=== PATIENT | male | born 1970 | race Caucasian/White ===

== ENCOUNTER 2020-09-26 09:09 | Day surgery (SDC) | payer BC, OTHER ==
[~2020-09-26] VITALS: Ht 172.7 cm; Wt 96.8 kg
[~2020-09-26 09:09] MED LIST: AMLO5 PO; AMOCLA875 PO; ASCO500 PO; Avapro300 MG; Benadryl25 MG; Budeprion Sr150 MG; CLARITIN-D 121 EACH PO; CODACE30 PO; Calcium 250+D1 EACH PO; ECHINACEA EXTR125 MG PO; IBUP400 PO; IRBE75; METCAR500 PO; MONT10T PO; Multiple Vitam1 EAC1 PO; OXYC5; POLY17UD PO; QVAR; RANI150 PO; SYNTHROID25 MCG PO; Saw Palmetto450 MG PO; TRAM50 PO; TRAZ100 PO; VITAMIN D35000 UNIT PO
[2020-09-26] MEDS ORDERED: VITAMIN D310 MC4 PO (09:37)
[2020-09-26] MEDS ORDERED: LOSARTAN POTAS100 M1 PO (09:39)
[2020-09-26] MEDS ORDERED: FAMO20 PO (09:40)
--- NOTE | 2020-09-26 10:43 | NUR ---
09/26/20 1043 Clarke Swann PATIENT DETERMINED TO BE ASA APPROPRIATE FOR PROPOFOL SEDATION PRIOR TO START OF PROCEDURE BY DR. Zak Smith Placed3-LEAD EKG REVIEWED WITH PHYSICIAN PRIOR TO START OF PROCEDURE.Patient to ENDO 1History, Chart, Medications and Allergies reviewed before start of procedure.MONITOR INTACT WITH CONTINUOUS PULSE OXIMETRY AND INTERMITTENT BP.O2 VIA N/C INTACT THROUGHOUT SEDATION/PROCEDURE.
--- NOTE | 2020-09-26 11:22 | NUR ---
Patient up to Ambulate independently. Gait steady. Discharge instructions reviewed with patient. Patient verbalizes understanding. Copy given to patient to take home. Patient States Post-Procedure ride home has been arranged. Discharged via wheelchair to private car for ride home. RACHEL RETURNED TO PATIENT
== END 2020-09-26 12:00 | disposition home or self-care (01) ==
LOC: ORSCMMR 09:09 → ORD 10:00 → ORSCMMR 10:00
PROVIDERS: Internal Medicine Gastroenterology
PROC: 0DB58ZX Excision of Esophagus, Via Natural or Artificial Opening Endoscopic, Diagnostic (ICD-10-PCS; principal; 2020-09-26 10:00)
PROC: 0DBM8ZX Excision of Descending Colon, Via Natural or Artificial Opening Endoscopic, Diagnostic (ICD-10-PCS; principal; 2020-09-26 10:00)
PROC: 0DB78ZX Excision of Stomach, Pylorus, Via Natural or Artificial Opening Endoscopic, Diagnostic (ICD-10-PCS; principal; 2020-09-26 10:00)
DX: R19.5 Other fecal abnormalities (principal); D12.4 Benign neoplasm of descending colon; K29.70 Gastritis, unspecified, without bleeding; K21.00 Gastro-esophageal reflux disease with esophagitis, without bleeding; K57.30 Diverticulosis of large intestine without perforation or abscess without bleeding; I10 Essential (primary) hypertension; Z79.899 Other long term (current) drug therapy
CPT/HCPCS: 88305; 88342; J2704; J7120

== ENCOUNTER → 2023-03-13 | Outpatient (CLI) | payer OTHER ==
[~2023-03-13] MED LIST changes: +FAMO20 PO; +LOSARTAN POTAS100 M1 PO; +VITAMIN D310 MC4 PO
[2023-03-13 12:06] LABS: BASOPHILS ABSOLUTE AUTO 0.04 K/mm3 (0.00-0.23); BASOPHILS PERCENT AUTO 1 % (0-2); EOSINOPHILS ABSOLUTE AUTO 0.19 K/mm3 (0.00-0.68); EOSINOPHILS PERCENT AUTO 3 % (0-6); Hematocrit 42.7 % (37.0-53.0); IMMATURE GRAN ABSOLUTE AUTO 0.02 K/mm3 (0.00-0.10); IMMATURE GRAN PERCENT AUTO 0 % (0-1); LYMPHOCYTES ABSOLUTE AUTO 2.26 K/mm3 (0.84-5.20); LYMPHOCYTES PERCENT AUTO 34 % (21-46); MONOCYTES ABSOLUTE AUTO 0.83 K/mm3 (0.16-1.47); MONOCYTES PERCENT AUTO 12 % (4-13); Mean Corpuscular HGB 31.3 pg (26.0-34.0); Mean Corpuscular HGB Conc 35.1 g/dL (31.5-36.5); Mean Corpuscular Volume 89 fL (80-100); Mean Platelet Volume 11.5 fL (9.1-12.4); NEUTROPHILS ABSOLUTE AUTO 3.33 K/mm3 (1.96-9.15); NEUTROPHILS PERCENT AUTO 50 % (41-73); Platelet Count 185 K/mm3 (150-400); RDW Coefficient Variation 12.5 % (11.7-14.2); RDW Standard Deviation 40.7 fL (35.1-46.3); White Blood Cell Count 6.67 K/mm3 (4.00-11.30)
[2023-03-13 12:42] LABS: Albumin, Blood 3.9 g/dL (3.4-5.0); Albumin/Globulin Ratio 1.2 (0.8-1.8); Bilirubin, Total 0.9 mg/dL (0.1-1.0); Bun/Creatinine Ratio 24.7 (12.0-20.0); Calcium, Blood 9.5 mg/dL (8.5-10.1); Creatinine, Blood 0.65 mg/dL (0.60-1.20); Globulin, Blood 3.3 g/dL (2.2-4.0); Potassium, Blood 4.2 mmol/L (3.5-5.5); Total Protein, Blood 7.2 g/dL (6.4-8.2)
== END | disposition home or self-care (01) ==
LOC: LAB 09:59 → LAB SHORT 09:59
PROVIDERS: Family Medicine
DX: E11.9 Type 2 diabetes mellitus without complications (principal); R51.9 Headache, unspecified
CPT/HCPCS: 80053; 83036; 85025; 85651